=== PATIENT | male | born 1950 ===

== ENCOUNTER 2018-02-04 17:31 | Inpatient (IN) | payer OTHER ==
[~2018-02-04] VITALS: Ht 180.3 cm; Wt 93.4 kg
[2018-02-05] MEDS ORDERED: PROZAC40 MG PO (07:22)
[2018-02-05] MEDS ORDERED: DIOVAN HCT 1601 EACH PO (07:23)
[2018-02-05] MEDS ORDERED: LIPITOR20 MG PO (07:23)
[2018-02-05] MEDS ORDERED: PREVACID15 M1 PO (07:23)
[2018-02-05] MEDS ORDERED: GLUCOPHAGE XR500 MG PO (07:25)
[2018-02-11] MEDS ORDERED: INTESTINEX680 M1 PO (11:59)
[2018-02-11] MEDS ORDERED: PERCOCET 5-3251 EACH PO (11:59)
== END 2018-02-11 14:49 | disposition home or self-care (01) | DRG 331 ==
LOC: SURH 02-08 07:47 → O/R 02-08 07:47 → SURH 02-08 14:06 → MEDI 02-08 14:06 → SURH 02-08 16:30
PROVIDERS: Surgery
PROC: 0DTP4ZZ Resection of Rectum, Percutaneous Endoscopic Approach (ICD-10-PCS; 2018-02-08)
PROC: 07TC4ZZ Resection of Pelvis Lymphatic, Percutaneous Endoscopic Approach (ICD-10-PCS; 2018-02-08)
PROC: 0DJD8ZZ Inspection of Lower Intestinal Tract, Via Natural or Artificial Opening Endoscopic (ICD-10-PCS; 2018-02-08)
PROC: 4A033R1 Measurement of Arterial Saturation, Peripheral, Percutaneous Approach (ICD-10-PCS; 2018-02-08)
PROC: 4A12X4Z Monitoring of Cardiac Electrical Activity, External Approach (ICD-10-PCS; 2018-02-08)
PROC: 0DTN4ZZ Resection of Sigmoid Colon, Percutaneous Endoscopic Approach (ICD-10-PCS; principal; 2018-02-08 16:30)
DX: C19 Malignant neoplasm of rectosigmoid junction (principal); R59.0 Localized enlarged lymph nodes; I11.9 Hypertensive heart disease without heart failure; G47.33 Obstructive sleep apnea (adult) (pediatric); E11.9 Type 2 diabetes mellitus without complications; E78.00 Pure hypercholesterolemia, unspecified; D50.0 Iron deficiency anemia secondary to blood loss (chronic)

== ENCOUNTER → 2018-03-11 | Day surgery (SDC) | payer OTHER ==
[~2018-03-11] MED LIST: DIOVAN HCT 1601 EACH PO; GLUCOPHAGE XR500 MG PO; INTESTINEX680 M1 PO; LIPITOR20 MG PO; PERCOCET 5-3251 EACH PO; PREVACID15 M1 PO; PROZAC40 MG PO
== END | disposition home or self-care (01) ==
LOC: ADM 03-09 14:15 → CIR.AMB 06:00
DX: C18.7 Malignant neoplasm of sigmoid colon (principal)
CPT/HCPCS: 36561; C1751